=== PATIENT | female | born 1995 | race Caucasian/White ===

== ENCOUNTER → 2018-07-10 | Outpatient (CLI) | payer BC ==
--- NOTE | 2018-07-11 09:12 | XR ---
EXAMINATION TYPE: XR wrist limited RT DATE OF EXAM: 07/10/2018 COMPARISON: NONE HISTORY: Mid wrist pain TECHNIQUE: 2 views submitted FINDINGS: Osseous structures intact. Chronic appearing deformity base of fourth metacarpal. No obviou s acute fracture or dislocation. Negative ulnar variance. IMPRESSION: 1. Acute process if symptoms persist MRI could BE obtained. 2. Chronic appearing deformity at the base of the fourth metacarpal
== END | disposition home or self-care (01) ==
LOC: RADXRYALE 15:50
PROVIDERS: ATTEND Internal Medicine
DX: M20.091 Other deformity of right finger(s) (principal); M25.531 Pain in right wrist

== ENCOUNTER → 2020-02-06 | Outpatient (CLI) | payer BC ==
--- NOTE | 2020-02-06 14:03 | XR ---
EXAMINATION TYPE: XR chest 2V DATE OF EXAM: 02/06/2020 COMPARISON: NONE HISTORY: Chest pain TECHNIQUE: Frontal and lateral views of the chest are obtained. FINDINGS: There is no focal air space opacity. No evidence for pneumothorax. No pleural effusion. The cardiac silhouette size is within normal limits. The osseous structures are grossly intact. IMPRESSION: 1. No acute cardiopulmonary process.
== END | disposition home or self-care (01) ==
LOC: RADXRYALE 09:47
PROVIDERS: ATTEND Internal Medicine
DX: Z00.00 Encounter for general adult medical examination without abnormal findings (principal)
CPT/HCPCS: 71046

== ENCOUNTER → 2020-02-19 | Outpatient (CLI) | payer BC | END | disposition home or self-care (01) | LOC: LABWHC1 11:21 | PROVIDERS: ATTEND Internal Medicine | DX: Z71.84 Encounter for health counseling related to travel (principal) | CPT/HCPCS: 86850; 86900; 86901 ==